=== PATIENT | female | born 2000 ===

== ENCOUNTER 2018-07-14 11:07 | Emergency (ER) | payer OTHER ==
[2018-07-14 11:11] VITALS: BMI 20.1
[2018-07-14 11:21] VITALS: RESP 18
[2018-07-14] MEDS ORDERED: Albuterol-Ipratrop 3 mg / 0.5 (3 ml) UD ONE (14:27)
--- NOTE | 2018-07-14 15:20 | RAD ---
Date of service: 07/14/2018 HISTORY: back pain COMPARISON: No prior. TECHNIQUE: Chest PA and lateral FINDINGS: LUNGS: No active pulmonary disease. PLEURA: No significant pleural effusion identified. No pneumothorax apparent. CARDIOVASCULAR: Normal. OSSEOUS STRUCTURES: No significant abnormalities. VISUALIZED UPPER ABDOMEN: Normal. OTHER FINDINGS: None. IMPRESSION: No active disease.
--- NOTE | 2018-07-14 16:02 | ED PDOC ---
Arrival/HPI - General Historian: Patient - History of Present Illness Narrative History of Present Illness (Text): 07/14/18 18:19 18 y/o female with no significant PMH presents to the ED c/o right-sided back pain x 4 hours s/p lifting heavy boxes. She had sudden onset of 7/10 non- radiating right sided thoracic back pain over paraspinal muscles, worse when taking a deep breath. Pt works in housekeeping lifting heavy items daily. She took 2 unknown pills for her pain at 10am, which helped relieve pain. No recent immobility or long travel, no OCP use. Denies fall, fevers, chills, SOB, cough, hemoptysis, calf swelling/pain, chest pain, palpitations, syncope, rash. History obtained with help of rat exterminator. <Polly Easton - Last Filed: 07/14/18 18:19> <Bryce Morgan - Last Filed: 07/15/18 13:13> - General Chief Complaint: Back Pain Time Seen by Provider: 07/14/18 13:12 Past Medical History - Provider Review Nursing Documentation Reviewed: Yes - Infectious Disease Hx of Infectious Diseases: None - Psychiatric Hx Substance Use: No - Anesthesia Hx Anesthesia: No <Polly Easton - Last Filed: 07/14/18 18:19> Family/Social History - Physician Review Nursing Documentation Reviewed: Yes Family/Social History: No Known Family HX Smoking Status: Never Smoked Hx Alcohol Use: No Hx Substance Use: No <Polly Easton - Last Filed: 07/14/18 18:19> Allergies/Home Meds <Polly Easton - Last Filed: 07/14/18 18:19> <Bryce Morgan - Last Filed: 07/15/18 13:13> Allergies/Adverse Reactions: Allergies No Known Allergies Allergy (Verified 07/14/18 11:10) Review of Systems - Physician Review All systems were reviewed & negative as marked: Yes - Review of Systems Constitutional: Normal Eyes: Normal ENT: Normal Respiratory: Normal. absent: SOB, Cough, Sputum, Wheezing Cardiovascular: Normal. absent: Chest Pain, Palpitations, Edema, Calf Pain, Syncope Gastrointestinal: Normal. absent: Abdominal Pain, Nausea, Vomiting Genitourinary Female: Normal Musculoskeletal: Back Pain (right side, thoracic paraspinal) Skin: Normal Neurological: Normal <Polly Easton - Last Filed: 07/14/18 18:19> Physical Exam Vital Signs Reviewed: Yes Vital Signs Temp Pulse Resp BP Pulse Ox 07/14/18 11:20 98.8 F 70 18 114/68 97 Temperature: Afebrile Blood Pressure: Normal Pulse: Regular Respiratory Rate: Normal Appearance: Positive for: Well-Appearing, Non-Toxic, Comfortable Pain Distress: None Mental Status: Positive for: Alert and Oriented X 3 - Systems Exam Head: Present: Atraumatic, Normocephalic Pupils: Present: PERRL Extroacular Muscles: Present: EOMI Conjunctiva: Present: Normal Mouth: Present: Moist Mucous Membranes Neck: Present: Normal Range of Motion. No: MIDLINE TENDERNESS, Paraspinal Tenderness Respiratory/Chest: Present: Clear to Auscultation, Good Air Exchange. No: Respiratory Distress, Accessory Muscle Use, Decreased Breath Sounds, Rales, Retracting, Rhonchi, Tachypneic, Tender to Palpation Cardiovascular: Present: Regular Rate and Rhythm, Normal S1, S2, Peripheal Pulses Present. No: Murmurs Abdomen: Present: Normal Bowel Sounds. No: Tenderness, Distention, Peritoneal Signs Back: Present: Normal Inspection, Paraspinal Tenderness (mild right-sided thoracic). No: CVA Tenderness, Midline Tenderness Upper Extremity: Present: Normal Inspection, Normal ROM, NORMAL PULSES Lower Extremity: Present: Normal Inspection, NORMAL PULSES, Normal ROM Neurological: Present: GCS=15, CN II-XII Intact, Speech Normal Skin: Present: Warm, Dry, Normal Color. No: Rashes Lymphatic: No: Cervical Adenopathy Psychiatric: Present: Alert, Oriented x 3, Normal Insight, Normal Concentration <Polly Easton - Last Filed: 07/14/18 18:19> Vital Signs Temp Pulse Resp BP Pulse Ox 07/14/18 16:18 98.4 F 72 18 121/71 100 07/14/18 11:20 98.8 F 70 18 114/68 97 <Bryce Morgan - Last Filed: 07/15/18 13:13> Medical Decision Making ED Course and Treatment: 07/14/18 18:08 18 y/o female with no significant PMH presents to the ED c/o right-sided back pain x 4 hours s/p lifting heavy boxes. She had sudden onset of 7/10 non- radiating right sided thoracic back pain over paraspinal muscles, worse when taking a deep breath. Pt works in housekeeping lifting heavy items daily. She took 2 unknown pills for her pain at 10am, which helped relieve pain. No recent immobility or long travel, no OCP use. Denies fall, fevers, chills, SOB, cough, hemoptysis, calf swelling/pain, chest pain, palpitations, syncope, rash. History obtained with help of rat exterminator. Physical exam: Normal cardiac and pulmonary exam Back: normal inspection, no midline tenderness. mild right sided paraspinal thoracic tenderness. will get CXR to r/o PTX will give flexeril and ibuprofen POC urine negative CXR: FINDINGS: LUNGS: No active pulmonary disease. PLEURA: No significant pleural effusion identified. No pneumothorax apparent. CARDIOVASCULAR: Normal. OSSEOUS STRUCTURES: No significant abnormalities. VISUALIZED UPPER ABDOMEN: Normal. OTHER FINDINGS: None. IMPRESSION: No active disease. Pt reports decreased pain with flexeril and ibuprofen Impression: muscle strain Plan: Take 1 tab flexeril every 8 hours as needed for pain Take 600mg ibuprofen every 6 hours as needed for pain Followup with primary doctor within 2 days Return to ED if symptoms persist or worsen Plan discussed with pt who agrees and understands. Pt comfortable with discharge home. 07/14/18 18:16 07/14/18 18:18 - RAD Interpretation Radiology Orders: 07/14/18 14:27 CXR [CHEST TWO VIEWS (PA/LAT)] [RAD] Stat - Medication Orders Current Medication Orders: Discontinued Medications Cyclobenzaprine HCl (Flexeril) 5 mg PO STAT STA Stop: 07/14/18 13:13 Last Admin: 07/14/18 14:30 Dose: 5 mg Ibuprofen (Motrin Tab) 600 mg PO STAT STA Stop: 07/14/18 13:14 Last Admin: 07/14/18 14:29 Dose: 600 mg <Sabrina Eastonsa - Last Filed: 07/14/18 18:19> - RAD Interpretation Radiology Orders: 07/14/18 14:27 CXR [CHEST TWO VIEWS (PA/LAT)] [RAD] Stat - Medication Orders Current Medication Orders: Discontinued Medications Cyclobenzaprine HCl (Flexeril) 5 mg PO STAT STA Stop: 07/14/18 13:13 Last Admin: 07/14/18 14:30 Dose: 5 mg Ibuprofen (Motrin Tab) 600 mg PO STAT STA Stop: 07/14/18 13:14 Last Admin: 07/14/18 14:29 Dose: 600 mg <Bryce Morgan - Last Filed: 07/15/18 13:13> Wells Criteria for PE - Wells Criteria for Pulmonary Embolism Clinical Signs and Symptoms of DVT: No P.E is #1 Diagnosis, or Equally Likely: No Heart Rate >100: No Immobilization at least 3 days;Surgery previous 4 weeks: No Previous, objectively diagnosed PE or DVT: No Hemoptysis: No Malignancy w/treatment within 6 months, or palliative: No Total Score: 0 <Polly Easton - Last Filed: 07/14/18 18:19> - PA / SHADE MATCHER / Resident Statement / has reviewed & agrees with the documentation as recorded. <Bryce Morgan - Last Filed: 07/15/18 13:13> Disposition/Present on Arrival - Present on Arrival Any Indicators Present on Arrival: No History of DVT/PE: No History of Uncontrolled Diabetes: No Urinary Catheter: No History of Decub. Ulcer: No History Surgical Site Infection Following: None - Disposition Have Diagnosis and Disposition been Completed?: Yes Disposition Time: 16:00 <Polly Easton - Last Filed: 07/14/18 18:19> <Bryce Morgan - Last Filed: 07/15/18 13:13> - Disposition Diagnosis: Muscle spasm Disposition: HOME/ ROUTINE Condition: IMPROVED Discharge Instructions (ExitCare): Muscle Spasms (DC) Additional Instructions: Take 1 tab flexeril every 8 hours as needed for pain Take 600mg ibuprofen every 6 hours as needed for pain Followup with primary doctor within 2 days Return to ED if symptoms persist or worsen Prescriptions: Cyclobenzaprine [Flexeril] 5 mg PO Q8H PRN #15 tab PRN Reason: Muscle Spasm RX: Ibuprofen [Motrin Tab] 600 mg PO Q6H PRN #30 tab PRN Reason: Pain, Mild (1-3) Referrals: PCP,NO [Primary Care Provider] - Follow up with primary Forms: [employer] (U[place]bek), WORK NOTE
[2018-07-14 16:20] VITALS: BP 121/71; PULSE 72; TEMP 98.4; O2SAT 100
== END 2018-07-14 16:18 | disposition home or self-care (01) ==
LOC: ED 11:07
DX: M62.830 Muscle spasm of back (principal)